=== PATIENT | female | born 1960 | race Two or more races ===

== ENCOUNTER 2017-08-22 07:15 | Day surgery (SDC) | payer MEDICAID ==
[~2017-08-22] VITALS: Ht 152.4 cm; Wt 57.0 kg
[~2017-08-22 07:15] MED LIST: ATEN-60 PO; ATO40T PO; FENO5TAB PO; GABA800T97 PO; INSU1INJ4 SC; LISI-711 PO
[2017-08-22] MEDS ORDERED: LIDOCAINE 2%HCL (LOCAL ANESTH.) INJ 20ML MDV ONE (07:59)
[2017-08-22] MEDS ORDERED: IODIXANOL 320MG/ML 100ML BTL IV ONE (08:01)
[2017-08-22] MEDS ORDERED: ANGIOMAX 250 MG VIAL IV ONE (08:35)
[2017-08-22] MEDS ORDERED: MIDAZOLAM HCL 1MG/1ML-2 ML VIAL ONE (08:36)
[2017-08-22] MEDS ORDERED: SODIUM CHL 0.9% 0 ML ONE (08:36)
[2017-08-22] MEDS ORDERED: fentaNYL CITRATE 100 MCG/2 ML VL ONE (08:36)
== END 2017-08-22 11:00 | disposition home or self-care (01) ==
LOC: CATH 07:15
PROVIDERS: ATTEND Internal Medicine
DX: I20.0 Unstable angina (principal); I25.9 Chronic ischemic heart disease, unspecified; I10 Essential (primary) hypertension; E11.9 Type 2 diabetes mellitus without complications; E78.5 Hyperlipidemia, unspecified; E11.21 Type 2 diabetes mellitus with diabetic nephropathy; J45.909 Unspecified asthma, uncomplicated; E66.9 Obesity, unspecified; Z68.24 Body mass index [BMI] 24.0-24.9, adult
CPT/HCPCS: 93458; C1760; C1894; J1644; J3010; J7030; 93005; 99152; J2250; Q9967